=== PATIENT | male | born 1960 | race Two or more races ===

== ENCOUNTER 2024-01-03 13:45 | Inpatient (IN) | payer SELFPAY ==
[~2024-01-03] VITALS: Ht 182.9 cm; Wt 72.6 kg
[2024-01-03] VITALS (14 sets, daily range): BP systolic 76–137; BP diastolic 58–101; PULSE 83–101; RESP 16–35; TEMP 35.6396; O2SAT 99–100
[2024-01-03] MEDS: SODIUM CHLORIDE 0.9% 1000ML BAG (SEPSIS BOLUS) IV ONE (14:23)
[2024-01-03 15:05] LABS: BG BASE EXCESS -14.5 mmol/L (-2.0-2.0); BG CARBOXYHEMOGLOBIN 0.2 % (0.5-1.5); BG DEOXYHEMOGLOBIN 1.7 % (0.0-5.0); BG FRACTION INSPIRED OXYGEN 44; BG HCO3 ACT 8.8 mmol/L (22.0-26.0); BG METHEMOGLOBIN 0.3 % (0.0-1.5); BG OXYGEN SATURATION 98.3 % (92.0-98.5); BG OXYHEMOGLOBIN 97.8 % (94.0-97.0); BG PH 7.284 (7.350-7.450); BG PO2 153.4 mmHg (75.0-100.0); BG SAMPLE SITE RIGHT RADIAL; BG VENT MODE NASAL CANNULA
[2024-01-03 15:29] LABS: BASOPHILS % 0.4 % (0.0-2.0); MEAN CORPUSCULAR HEMOGLOBIN 22.5 pg (28.0-32.0); MEAN CORPUSCULAR HGB CONC 29.7 g/dL (31.0-37.0); MONOCYTES % 6.9 % (2.0-8.0); NEUTROPHILS % 83.7 % (40.0-76.0); RED BLOOD CELL COUNT > 8.00 mill/uL (4.7-6.1); RED CELL DISTRIBUTION WIDTH 17.5 % (11.6-14.6); WHITE BLOOD COUNT 12.9 x1000/uL (4.5-11.0)
[2024-01-03] MEDS: LORAZEPAM 2MG/ML INJ IV ONE (15:29)
[2024-01-03] MEDS: LORAZEPAM 2MG/ML INJ IM ONE (15:29)
[2024-01-03 15:30] LABS: CHLORIDE 126 mEq/L (98-107)
[2024-01-03 15:31] LABS: CALCIUM 9.7 mg/dL (8.7-10.4); CARBON DIOXIDE 12 mEq/L (21-32)
[2024-01-03 15:33] LABS: DIFFERENTIAL COMMENT 1
[2024-01-03 15:35] LABS: HEMOGLOBIN. 18.2 g/dL (14.0-18.0)
[2024-01-03 15:36] LABS: HEMATOCRIT. 61.5 % (42.0-52.0)
[2024-01-03 15:38] LABS: ALANINE AMINOTRANSFERASE 17 IU/L (10-49); ALBUMIN 4.5 g/dL (3.2-4.8); ASPARTATE AMINOTRANSFERASE 10 IU/L (<34); BILIRUBIN TOTAL 0.5 mg/dL (0.1-1.0); CREATINE KINASE 156 IU/L (46-171); PROTEIN TOTAL 8.3 g/dL (6.0-8.3)
[2024-01-03 15:40] LABS: INR 1.1; PROTHROMBIN TIME 12.6 sec (9.6-11.0)
[2024-01-03 15:54] LABS: LACTIC ACID 6.3 mmol/L (0.4-2.0)
[2024-01-03 15:55] LABS: SODIUM 166 mEq/L (136-145)
[2024-01-03 15:56] LABS: CREATININE 14.7 mg/dL (0.6-1.3); GLUCOSE 471 mg/dL (70-105); POTASSIUM 6.3 mEq/L (3.5-5.1); UREA NITROGEN BLOOD 188 mg/dL (9-23)
[2024-01-03 15:57] LABS: TROPONIN I HIGH SENSITIVITY 392 ng/L (3.0-53)
[2024-01-03 16:00] LABS: PLATELET 240 x1000/uL (130-400)
[2024-01-03 16:15] LABS: BETA HYDROXYBUTYRATE 1.7 mMol/L (0.0-0.3)
[2024-01-03] MEDS ORDERED: NICARDIPINE 40MG/200ML PREMIX 200 ML IV STA (16:34)
[2024-01-03] MEDS ORDERED: ALBUTEROL (0.083%) 2.5MG/3ML NEB HHN ONE (16:45)
[2024-01-03] MEDS ORDERED: INSULIN REGULAR (DRIP) 100 UNITS in SODIUM CHLORIDE 0.9% 99 ML IV SCH (16:45)
[2024-01-03] MEDS: SODIUM BICARBONATE 8.4% 50MEQ/50ML SYR IV ONE (16:50)
[2024-01-03] MEDS: BLOOD SUGAR DIAGNOSTIC STRIP TEST SCH (17:01)
[2024-01-03] MEDS: INSULIN REGULAR (HUMULIN R) 1000UNITS/10ML VIAL IV ONE (17:04)
[2024-01-03] MEDS: PIPERACILLIN/TAZO 3.375G/50ML 50 ML IV STA (17:15)
[2024-01-03] MEDS: NICARDIPINE 40MG/200ML PREMIX 200 ML IV SCH (17:30)
[2024-01-03] MEDS: INSULIN REGULAR 100U/100ML PMX 100 ML IV SCH (17:33)
[2024-01-03] MEDS: SODIUM CHLORIDE 0.9% 1,000 ML IV SCH (17:39)
[2024-01-03] MEDS: VANCOMYCIN 1G PREMIX 200 ML IV SCH (17:39)
[2024-01-03] MEDS ORDERED: IPRATROPIUM/ALBUTEROL 0.5-3(2.5)MG/3ML NEB HHN PRN (17:45)
[2024-01-03] MEDS ORDERED: DOCUSATE SODIUM 100MG CAPSULE PO PRN (17:45)
[2024-01-03] MEDS ORDERED: ONDANSETRON HCL 4MG/2ML INJ IV PRN (17:45)
[2024-01-03] MEDS ORDERED: GUAIFENESIN 200MG/10ML SUGAR FREE UDC PO PRN (17:45)
[2024-01-03] MEDS ORDERED: ACETAMINOPHEN 325MG TABLET PO PRN ×2 (17:45)
[2024-01-03] MEDS ORDERED: CLONIDINE 0.1MG TABLET PO PRN (17:45)
[2024-01-03] MEDS ORDERED: MAGNESIUM/ALUMINUM HYDROXIDE/SIMETHICONE 30ML UDC PO PRN (17:45)
[2024-01-03] MEDS ORDERED: NICARDIPINE 100 MG in SODIUM CHLORIDE 0.9% 60 ML IV PRN (18:00)
[2024-01-03] MEDS ORDERED: SODIUM CHLORIDE 0.9% 1,000 ML IV SCH (18:00)
[2024-01-03] MEDS: ALBUTEROL (0.083%) 2.5MG/3ML NEB HHN NR (18:37)
[2024-01-03 18:52] LABS: CARBON DIOXIDE 13 mEq/L (21-32); CHLORIDE 129 mEq/L (98-107); POTASSIUM 4.7 mEq/L (3.5-5.1)
[2024-01-03 18:53] LABS: CALCIUM 9.5 mg/dL (8.7-10.4)
[2024-01-03 18:58] LABS: LDL CHOLESTEROL 102 mg/dL (5-100); TRIGLYCERIDE 399 mg/dL (0-150)
[2024-01-03 18:59] LABS: CREATINE KINASE 209 IU/L (46-171)
[2024-01-03 19:00] LABS: CHOLESTEROL 199 mg/dL (<200); HDL CHOLESTEROL 33 mg/dL (>55)
[2024-01-03 19:02] LABS: T4 FREE 0.86 ng/dL (0.89-1.76); THYROID STIMULATING HORMONE 2.26 uIU/mL (0.55-4.78)
[2024-01-03 19:04] LABS: GLUCOSE 438 mg/dL (70-105); SODIUM 172 mEq/L (136-145)
[2024-01-03 19:05] LABS: CREATININE 15.2 mg/dL (0.6-1.3); TROPONIN I HIGH SENSITIVITY 410 ng/L (3.0-53)
[2024-01-03 19:06] LABS: PHOSPHORUS 11.7 mg/dL (2.5-4.9)
[2024-01-03 19:07] LABS: UREA NITROGEN BLOOD 183 mg/dL (9-23)
[2024-01-03] MEDS: VANCOMYCIN 750MG/150ML (BAXTER) IV NR (20:31)
[2024-01-03] MEDS: INSULIN GLARGINE 100 UNITS/ML SUBCUT NR (22:54)
[2024-01-03] MEDS ORDERED: DEXTROSE 50% WATER 50ML SYRINGE IV PRN (23:15)
[2024-01-03 23:31] LABS: CHLORIDE 129 mEq/L (98-107)
[2024-01-03 23:32] LABS: CALCIUM 9.7 mg/dL (8.7-10.4); CARBON DIOXIDE 14 mEq/L (21-32)
[2024-01-03 23:33] LABS: SODIUM 177 mEq/L (136-145)
[2024-01-03 23:42] LABS: CREATININE 15.5 mg/dL (0.6-1.3); GLUCOSE 167 mg/dL (70-105)
[2024-01-03 23:43] LABS: PHOSPHORUS 14.4 mg/dL (2.5-4.9)
[2024-01-03] MEDS: DEXTROSE 5% WATER 1,000 ML IV SCH (23:46)
[2024-01-03 23:48] LABS: UREA NITROGEN BLOOD 195 mg/dL (9-23)
[2024-01-04] VITALS (147 sets, daily range): BP systolic 44–214; BP diastolic 11–119; PULSE 65–158; RESP 11–113; TEMP 36.72516–37.39188; O2SAT 57–100
[2024-01-04 01:32] LABS: TROPONIN I HIGH SENSITIVITY 534 ng/L (3.0-53)
[2024-01-04] MEDS: DOPAMINE 800MG/500ML PREMIX 500 ML IV SCH (03:00)
[2024-01-04 03:15] LABS: POTASSIUM 4.4 mEq/L (3.5-5.1)
[2024-01-04 03:17] LABS: CALCIUM 9.3 mg/dL (8.7-10.4)
[2024-01-04 03:44] LABS: CREATININE 17.1 mg/dL (0.6-1.3)
[2024-01-04 04:11] LABS: BG BASE EXCESS -15.3 mmol/L (-2.0-2.0); BG CARBOXYHEMOGLOBIN 0.2 % (0.5-1.5); BG DEOXYHEMOGLOBIN 2.7 % (0.0-5.0); BG FRACTION INSPIRED OXYGEN 100; BG HCO3 ACT 11.4 mmol/L (22.0-26.0); BG METHEMOGLOBIN 0.3 % (0.0-1.5); BG OXYGEN SATURATION 97.3 % (92.0-98.5); BG OXYHEMOGLOBIN 96.8 % (94.0-97.0); BG PCO2 30.7 mmHg (35.0-45.0); BG PH 7.187 (7.350-7.450); BG PO2 120.5 mmHg (75.0-100.0); BG SAMPLE SITE LEFT RADIAL; BG TOTAL HEMOGLOBIN 19.5 g/dL (12.0-18.0); BG VENT MODE VENT - AC
[2024-01-04] MEDS: VASOPRESSIN 20 UNIT in SODIUM CHLORIDE 0.9% 99 ML IV PRN (04:23)
[2024-01-04] MEDS: SODIUM BICARBONATE 8.4% 50MEQ/50ML SYR IV NR ×2 (04:48→10:23)
[2024-01-04 05:41] LABS: BASOPHILS % 0.3 % (0.0-2.0); HEMOGLOBIN. 18.3 g/dL (14.0-18.0); LYMPHOCYTES % 7.2 % (20.0-50.0); MEAN CORPUSCULAR HEMOGLOBIN 22.8 pg (28.0-32.0); MEAN CORPUSCULAR HGB CONC 29.7 g/dL (31.0-37.0); MEAN CORPUSCULAR VOLUME 76.8 fL (80.0-94.0); MEAN PLATELET VOLUME 11.1 fl (7.4-10.4); MONOCYTES % 10.8 % (2.0-8.0); NEUTROPHILS % 81.7 % (40.0-76.0); PLATELET 249 x1000/uL (130-400); RED BLOOD CELL COUNT > 8.00 mill/uL (4.7-6.1); RED CELL DISTRIBUTION WIDTH 16.7 % (11.6-14.6); WHITE BLOOD COUNT 14.2 x1000/uL (4.5-11.0)
[2024-01-04 05:54] LABS: IRON 64 ug/dL (65-175)
[2024-01-04 05:56] LABS: TROPONIN I HIGH SENSITIVITY 1137 ng/L (3.0-53)
[2024-01-04 05:58] LABS: TOTAL IRON BINDING CAPACITY 562 ug/dl (250-425)
[2024-01-04] MEDS: BLOOD SUGAR DIAGNOSTIC STRIP TEST SCH ×2 (06:25→11:02)
[2024-01-04] MEDS: PIPERACILLIN/TAZO 3.375G/50ML 50 ML IV SCH (06:33)
[2024-01-04] MEDS: INSULIN LISPRO 100 UNITS/ML SUBCUT SCH (06:34)
[2024-01-04 06:54] LABS: DIFFERENTIAL COMMENT 1; HEMATOCRIT. 61.5 % (42.0-52.0)
[2024-01-04] MEDS ORDERED: PHENYLEPHRINE 100 MG in DEXT 5% WATER 240 ML IV PRN (07:00)
[2024-01-04] MEDS: DEXMEDETOMIDINE 400 MCG/100 ML 100 ML IV PRN (07:27)
[2024-01-04 08:40] LABS: BG CARBOXYHEMOGLOBIN 0.2 % (0.5-1.5); BG DEOXYHEMOGLOBIN 8.5 % (0.0-5.0); BG FRACTION INSPIRED OXYGEN 80; BG HCO3 ACT 9.9 mmol/L (22.0-26.0); BG METHEMOGLOBIN 0.1 % (0.0-1.5); BG OXYGEN SATURATION 91.5 % (92.0-98.5); BG OXYHEMOGLOBIN 91.2 % (94.0-97.0); BG PCO2 18.1 mmHg (35.0-45.0); BG PH 7.355 (7.350-7.450); BG PO2 68.9 mmHg (75.0-100.0); BG SAMPLE SITE RIGHT BRACHIAL; BG TOTAL HEMOGLOBIN 19.5 g/dL (12.0-18.0); BG VENT MODE VENT - AC
[2024-01-04 08:56] LABS: POTASSIUM 5.6 mEq/L (3.5-5.1)
[2024-01-04 08:57] LABS: CALCIUM 8.8 mg/dL (8.7-10.4)
[2024-01-04 09:11] LABS: CREATININE 17.2 mg/dL (0.6-1.3)
[2024-01-04] MEDS ORDERED: DOPAMINE 800MG PREMIX (DOUBLE) 250 ML IV SCH (09:30)
[2024-01-04] MEDS: INSULIN GLARGINE 100 UNITS/ML SUBCUT SCH (10:27)
[2024-01-04] MEDS: INSULIN REGULAR (HUMULIN R) 1000UNITS/10ML VIAL IV NR (11:02)
[2024-01-04] MEDS: DEXTROSE 50% WATER 50ML SYRINGE IV NR (11:02)
[2024-01-04] MEDS: SODIUM BICARBONATE 100 MEQ in DEXTROSE 5% WATER 900 ML IV SCH (11:03)
[2024-01-04] MEDS: INSULIN REGULAR 100U/100ML PMX 100 ML IV SCH (11:12)
[2024-01-04] MEDS: PHENYLEPHRINE 100 MG in DEXT 5% WATER 240 ML IV PRN (11:14)
[2024-01-04] MEDS: NOREPINEPHRINE 32 MG in DEXT 5% WATER 218 ML IV PRN (11:14)
[2024-01-04] MEDS ORDERED: BLOOD SUGAR DIAGNOSTIC STRIP TEST SCH (12:00)
[2024-01-04] MEDS ORDERED: LIDOCAINE HCL 1% 10 MG/ML 10ML VIAL ONE ×2 (12:48→14:08)
[2024-01-04] MEDS ORDERED: HEPARIN 1000 UNITS/ML 10ML ONE ×2 (12:49→14:08)
[2024-01-04 13:04] LABS: POTASSIUM 4.7 mEq/L (3.5-5.1)
[2024-01-04 13:06] LABS: CALCIUM 8.3 mg/dL (8.7-10.4)
[2024-01-04 13:18] LABS: FIBRINOGEN 459 mg/dL (200-400)
[2024-01-04 13:26] LABS: CREATININE 17.3 mg/dL (0.6-1.3)
[2024-01-04 13:30] LABS: D-DIMER > 35.20 mg/L FEU (<0.50)
[2024-01-04 15:00] LABS: *AMPHETAMINES SCREEN URINE NEGATIVE (NEGATIVE); *BARBITURATES SCREEN URINE NEGATIVE (NEGATIVE); *BENZODIAZEPINES SCREEN URINE NEGATIVE (NEGATIVE); *COCAINE SCREEN URINE PRESUMPTIVE POSITIVE (NEGATIVE); CANNABINOID URINE SCREEN NEGATIVE (NEGATIVE); ECSTASY MDMA SCREEN URINE NEGATIVE (NEGATIVE); METHADONE URINE SCREEN NEGATIVE (NEGATIVE); OPIATES URINE SCREEN NEGATIVE (NEGATIVE); PHENCYCLIDINE URINE SCREEN NEGATIVE (NEGATIVE)
[2024-01-04 16:22] LABS: OSMOLALITY URINE 469 mOsm/kg (500-850)
[2024-01-04] MEDS ORDERED: VASOPRESSIN 20 UNIT in SODIUM CHLORIDE 0.9% 99 ML IV PRN (16:45)
[2024-01-04 16:51] LABS: POTASSIUM 4.7 mEq/L (3.5-5.1)
[2024-01-04 16:52] LABS: CALCIUM 9.1 mg/dL (8.7-10.4)
[2024-01-04 17:22] LABS: CREATININE 16.2 mg/dL (0.6-1.3)
[2024-01-04] MEDS: EPINEPHRINE 10 MG in SODIUM CHLORIDE 0.9% 240 ML IV PRN (18:41)
[2024-01-04] MEDS: DEXTROSE 50% WATER 50ML SYRINGE IV PRN ×2 (20:07→23:03)
[2024-01-04] MEDS ORDERED: PIPERACILLIN/TAZO 3.375G/50ML 50 ML IV SCH (21:00)
[2024-01-04 21:12] LABS: POTASSIUM 4.9 mEq/L (3.5-5.1)
[2024-01-04 21:13] LABS: CALCIUM 7.8 mg/dL (8.7-10.4)
[2024-01-04 21:31] LABS: CREATININE 16.2 mg/dL (0.6-1.3)
[2024-01-04] MEDS: DEXT 10% WATER 1,000 ML IV SCH (23:17)
[2024-01-05] VITALS: BP 94/66; PULSE 133; RESP 18; TEMP 36.78072
[2024-01-05] MEDS ORDERED: AMIODARONE HCL 50MG/ML 3ML VIAL IV ONE
[2024-01-05 00:15] VITALS: BP 94/66; PULSE 133; RESP 18
== END 2024-01-05 00:40 | DRG 720 ==
LOC: ER 13:45 → EDBEDREQ 14:10 → EDBEDREQTM 17:06 → EDBEDREQ 17:06 → MICUSO 20:57
PROVIDERS: ADMIT Internal Medicine; ATTEND Internal Medicine
PROC: 06H033Z Insertion of Infusion Device into Inferior Vena Cava, Percutaneous Approach (ICD-10-PCS; 2024-01-03)
PROC: B549ZZA Ultrasonography of Inferior Vena Cava, Guidance (ICD-10-PCS; 2024-01-03)
PROC: 5A12012 Performance of Cardiac Output, Single, Manual (ICD-10-PCS; principal; 2024-01-04)
PROC: 5A1935Z Respiratory Ventilation, Less than 24 Consecutive Hours (ICD-10-PCS; 2024-01-04)
PROC: 0BH17EZ Insertion of Endotracheal Airway into Trachea, Via Natural or Artificial Opening (ICD-10-PCS; 2024-01-04)
DX: A41.9 Sepsis, unspecified organism (principal); I61.5 Nontraumatic intracerebral hemorrhage, intraventricular; J96.01 Acute respiratory failure with hypoxia; G93.40 Encephalopathy, unspecified; E11.10 Type 2 diabetes mellitus with ketoacidosis without coma; R65.21 Severe sepsis with septic shock; I21.A1 Myocardial infarction type 2; Z66 Do not resuscitate; E83.39 Other disorders of phosphorus metabolism; E83.41 Hypermagnesemia; E11.22 Type 2 diabetes mellitus with diabetic chronic kidney disease; D75.1 Secondary polycythemia; E87.0 Hyperosmolality and hypernatremia; Z96.652 Presence of left artificial knee joint; Z20.822 Contact with and (suspected) exposure to COVID-19; E86.0 Dehydration; I12.0 Hypertensive chronic kidney disease with stage 5 chronic kidney disease or end stage renal disease; N18.6 End stage renal disease; E86.1 Hypovolemia; E87.5 Hyperkalemia; F14.129 Cocaine abuse with intoxication, unspecified; N17.9 Acute kidney failure, unspecified; Z78.1 Physical restraint status; Z79.4 Long term (current) use of insulin; Z91.199 Patient's noncompliance with other medical treatment and regimen due to unspecified reason
CPT/HCPCS: 31500; 36415; 36556; 36600; 71045; 76770; 76937; 80048; 80053; 80061; 80305; 82010; 82375; 82550; 82668; 82728; 82805; 82962; 83036; 83540; 83550; 83605; 83735; 83880; 83930; 83935; 84100; 84145; 84439; 84443; 84484; 85025; 85379; 85384; 87426; 93005; 94003; 94640; 99291; A6261; C1752; J0282; J1265; J1644; J1815; J2060; J2543; J3370; J3490; J7030; J7050; J7060; J7070; Q9957